=== PATIENT | male | born 1965 | race Caucasian/White ===

== ENCOUNTER 2023-10-14 11:47 | Emergency (ER) | payer OTHER, SELFPAY ==
[2023-10-14 11:52] VITALS: BP 194/119
--- NOTE | 2023-10-14 13:36 | ED.GENMED ---
History of Present Illness
General
Chief Complaint: DVT/Possible Blood Clot
Source: patient
Exam Limitations: none
Time Seen by Provider: 10/14/23 12:03
Nursing documentation reviewed up to this point in time: agreed with
Travel History
Have you had any contact with someone who has COVID-19?: No
Do you have any symptoms of coronavirus? Fever > 100 degrees, chills, cough, shortness of breath, sore throat, loss of taste or smell, muscle aches, or headache?: No
History of Present Illness
History of Present Illness:
58-year-old male with past medical history of blood clot currently on anticoagulant presenting to the emergency department today with concerns of swelling to the right lower extremity. Notices over the past few days but denies any specific
inciting event. Denies any chest pain shortness of breath. No recent trauma surgery immobilization.
Review of Systems
Review of Systems
Allergies reviewed?: Yes
All Other Systems: ROS reviewed and negative except as documented in HPI and ROS
Phy Exam
Physical Exam
Physical Exam:
GENERAL: Alert , in no apparent distress
EYE: pupils equal and reactive
NECK: Supple, no significant adenopathy.
ENT: o/p clr, mmm.
CARDIAC: Regular rate and rhythm .
LUNGS: Clear breath sounds bilaterally, no acute respiratory distress, no wheezes/rales/rhonchi
ABDOMEN: Soft, without focal tenderness, no r/g, no cvat
NEUROLOGICAL: Alert and oriented, no focal neuro deficits
SKIN: Warm and dry, skin intact.
MUSCULOSKELETAL: Swelling to the right lower extremity distal to the right knee small mount of pitting good distal pulses., well perfused.
PSYCH: Normal and appropriate interaction.
Course
Orders/Labs/Results
Orders:
Orders
10/14/23 12:03
Venous Doppler Lwr Ext Rt [US Perip Venous LOWER Ext RT] Urgent
Comment:
Reason For Exam: right leg swelling
Vital Signs
Initial and Last Documented VS:
Initial Vital Signs
Temp Resp Pulse Ox
97.6 F 16 98
10/14/23 11:50 10/14/23 11:50 10/14/23 11:50
Last Documented Vital Signs
Temp Resp BP Pulse Ox
97.6 F 16 194/119 99
10/14/23 11:50 10/14/23 11:50 10/14/23 11:52 10/14/23 12:20
MDM/Problems Addressed
MDM/Problems Addressed:
58-year-old male presenting to the emergency department today with concerns of right leg swelling over the past 2 days without specific inciting event. Patient concerned of DVT. Ultrasound without signs of DVT does show small hematoma he was
advised for conservative treatment and close follow-up as an outpatient as needed. Return precautions given.
*Critical Care Note
Total Time (30-74mins, 75-104mins- exclusive of procedures): Not Applicable
ED Attending Note
-
Portions of this chart may have been created with voice recognition software.� Occasional wrong word or��sound alike� substitutions may have occurred due to the inherent limitations of voice recognition software.
Discharge Plan
Departure
Patient Disposition: Home (Routine Discharge)
Date of Disposition: 10/14/23
Time of Disposition: 14:31
Patient with high blood pressure during this ER visit?: No
Condition: Good
Covid-19: Not Applicable
Discharge Problem:
Calf swelling
Instructions: Dependent Edema (DC)
Referrals:
Mio Arrieta MD [Active] - Follow up in 5-7 days
NONE,* [Family Provider] -
Activity Restrictions/Additional Instructions:
You came to the emergency department today with concerns of leg swelling. Here had an ultrasound without signs of DVT. Please follow closely as an outpatient otherwise keep your leg elevated and use compression stocking. Return to the emergency
department for any worsening, new or concerning symptoms.
Interventions
Interventions:
*Risk Screen - Suicide Last Done: 10/14/23 11:50
*General Assessment Last Done: 10/14/23 11:50
*Neglect/Abuse Screening Last Done: 10/14/23 11:50
ED- Fall Risk Assessment Last Done: 10/14/23 12:20
*ED COVID-19 Vaccine History Last Done: 10/14/23 11:50
ED- Cardiac Assessment Last Done: 10/14/23 12:20
ED- Pulmonary Assessment Last Done: 10/14/23 12:20
ED-Peripheral Vascular Assessment Last Done: 10/14/23 12:20
ED-Skin Assessment Last Done: 10/14/23 12:20
Discharge Date and Time
Print Language: ICELANDIC
== END 2023-10-14 14:55 | disposition home or self-care (01) ==
LOC: EMR 11:47
PROVIDERS: EMERGENCY PHYSICIAN Emergency Medicine
DX: R22.41 Localized swelling, mass and lump, right lower limb (principal); Z79.01 Long term (current) use of anticoagulants
CPT/HCPCS: 99284; 93971